=== PATIENT | male | born 1945 | race Caucasian/White ===

== ENCOUNTER 2019-07-03 13:33 | Emergency (ER) | payer SELFPAY ==
[2019-07-03] MEDS ORDERED: Ketorolac *IM* INJ* 60 MG/2 ML VIAL IM ONE (14:55)
[2019-07-03] MEDS ORDERED: Cyclobenzaprine TAB* 10 MG PO ONE (14:57)
[2019-07-03] MEDS ORDERED: predniSONE TAB* 50 MG PO ONE (15:00)
[2019-07-03 15:30] VITALS: BP 177/79
--- NOTE | 2019-07-03 15:30 | ED ---
Neck Pain - HPI Summary HPI Summary: This patient is a 74-year-old male presenting to the ED with bilateral neck pain. He states this happened to him 3 months ago, was given prednisone and a muscle relaxer as well as a pain medication and this improved. He states 4 days ago, the pain began again and now he is endorsing stiff neck. He denies any pain to the posterior cervical spine. Denies any visual changes or disturbances. He denies any significant health history. Denies fevers, sweats , chills. Patient denies any trauma or strain to the area, however just states the area began to become stiffer in the past few days and now has been unable to flex, extend, and rotate about the neck. - History of Current Complaint Chief Complaint: EDNeckComplaint Stated Complaint: NECK PAIN Time Seen by Provider: 07/03/19 14:50 Hx Obtained From: Patient Timing: Constant, Lasting Days Onset/Duration: Sudden Onset Severity Initially: Moderate Severity Currently: Moderate Pain Intensity: 7 Pain Scale Used: 0-10 Numeric Location: Discrete At: - bilateral neck pain Aggravating Factors: Movement Alleviating Factors: Nothing - Risk Factors Meningitis Risk Factors: Negative - Allergies/Home Medications Allergies/Adverse Reactions: Allergies Allergy/AdvReac Type Severity Reaction Status Date / Time No Known Allergies Allergy Verified 07/03/19 13:37 PMH/Surg Hx/FS Hx/Imm Hx Previously Healthy: Yes - Immunization History Hx Pertussis Vaccination: No Immunizations Up to Date: Yes Infectious Disease History: No Infectious Disease History: Denies: Traveled Outside the [place] in Last 30 Days - Social History Occupation: Unemployed Lives: With Family Alcohol Use: None Hx Substance Use: No Substance Use Type: Reports: None Hx Tobacco Use: No Smoking Status (MU): Never Smoked Tobacco Review of Systems Constitutional: Negative Negative: Fever, Chills, Fatigue, Skin Diaphoresis Negative: Palpitations, Chest Pain Negative: Shortness Of Breath, Cough Genitourinary: Negative Positive: no symptoms reported, see HPI Positive: Arthralgia - bilateral neck pain Skin: Negative Neurological: Negative All Other Systems Reviewed And Are Negative: Yes Physical Exam Triage Information Reviewed: Yes Vital Signs On Initial Exam: Initial Vitals Temp Pulse Resp BP Pulse Ox 98.8 F 79 20 182/85 99 07/03/19 13:35 07/03/19 13:35 07/03/19 13:35 07/03/19 13:35 07/03/19 13:35 Vital Signs Reviewed: Yes Appearance: Positive: Well-Appearing, Well-Nourished Skin: Positive: Warm, Skin Color Reflects Adequate Perfusion Head/Face: Positive: Normal Head/Face Inspection Eyes: Positive: EOMI, REYNALDO, Conjunctiva Clear Neck: Positive: Supple, Other: - tenderness to the bilateral sides of the neck Respiratory/Lung Sounds: Positive: Clear to Auscultation Cardiovascular: Positive: RRR, Pulses are Symmetrical in both Upper and Lower Extremities Musculoskeletal: Positive: Pain @ - bilateral neck pain Neurological: Positive: Speech Normal Psychiatric: Positive: Affect/Mood Appropriate AVPU Assessment: Alert Diagnostics - Vital Signs Vital Signs Temp Pulse Resp BP Pulse Ox 07/03/19 13:35 98.8 F 79 20 182/85 99 - Laboratory Lab Statement: Any lab studies that have been ordered have been reviewed, and results considered in the medical decision making process. Neck Course/Dx - Course Course Of Treatment: During the course of treatment, the patient's evaluated for bilateral neck pain. Denies any supposed or cervical tenderness. Denies any pain to the spine otherwise. He states this happened 3 months ago when he ad a stiff neck and was given steroids, pain management as well as muscle relaxers and it cleared up within 24 hours. He states he's been fine these last 3 months until apparently 4 days ago when he began to have some stiffness in the bilateral sides of the neck again. He states he awoke with this and the symptoms have been worsening. He is unable to flex, extend, abduct and adduct without pain. Denies any fevers, sweats, chills, visual changes. He is given heat packs in the ED with some relief. He is also given Toradol IM as well as prednisone 50 mg in the ED. He is given Flexeril 10 mg. He is prescribed these medications. He will continue to take all medications as prescribed and use moist heat. He is okay with this plan and discharge at this time. He will be diagnosed with neck pain. - Diagnoses Differential Dx/HQI/PQRI: Positive: Sprain, Strain Provider Diagnoses: Neck pain Discharge ED - Sign-Out/Discharge Documenting (check all that apply): Patient Departure Patient Received Moderate/Deep Sedation with Procedure: No - Discharge Plan Condition: Good Disposition: HOME Prescriptions: Cyclobenzaprine TAB* [Flexeril TAB*] 10 mg PO TID #20 tab MDD 3 Ketorolac TAB * [Toradol TAB *] 10 mg PO Q6H #16 tab predniSONE TAB* [Deltasone TAB*] 50 mg PO DAILY #5 tab MDD 1 Patient Education Materials: Neck Pain (ED) Referrals: No Primary Care Phys,NOPCP [Primary Care Provider] - Additional Instructions: Toradol 4 times daily 4 days Do not take ibuprofen, Motrin or other NSAIDs while taking this medication Prednisone 50 mg once daily 5 days, start this tomorrow Flexeril 2-3 times daily for muscle relaxer Moist heat to the area - Billing Disposition and Condition Condition: GOOD Disposition: Home
== END 2019-07-03 15:20 | disposition home or self-care (01) ==
LOC: ED 13:33
DX: M54.2 Cervicalgia (principal); Z79.899 Other long term (current) drug therapy
CPT/HCPCS: 96372; 99282; A9270-GY; J1885; J7512